=== PATIENT | male | born 1950 | race Caucasian/White ===

== ENCOUNTER → 2017-04-13 | Outpatient (CLI) | payer MEDICARE, BC ==
[~2017-04-13] MED LIST: ASPI-535; CLOP75TA19; EZET10TA3 PO; FENO145T25; INSU100C5 SC; IODIXANOL LOCM 100 ML BTL ONE; IODIXANOL LOCM 50 ML BTL ONE; LIRA0.6P; METF500T4 PO; PIOG45TA6 PO; SIMV-39; SITA1TAB7 PO; SOD CHLORIDE 0.9% 100 ML ONE
[2017-04-13 09:50] LABS: CALCIUM 9.4 mg/dl (8.4-10.2); CREATININE 1.15 mg/dl (0.61-1.24); POTASSIUM 4.4 mmol/L (3.5-5.1)
--- NOTE | 2017-04-13 13:05 | RADRPT ---
PROCEDURE: CT angiography of the abdomen and pelvis bilateral lower extremities with contrast. CLINICAL INDICATION: Peripheral artery disease TECHNIQUE: CT angiography of the abdomen, pelvis, and bilateral lower extremities was performed on a high resolution multidetector scanner with intravenous contrast. Multiplanar reconstructions, thr ee-dimensional reconstructions, as well as maximal intensity projection images are produced and revi ewed. One or more of the following dose reduction techniques were used: Automated exposure control; Adjustment of the mA and/or kV according to patient size; Use of iterative reconstruction technique. CTDI = 14, 53 mGy. DLP = 2027 mGy-cm. DICOM images are available. CONTRAST: 120 ml Visipaque 320 administered without adverse event. COMPARISON: None. FINDINGS: Abdominal Aorta: Mild calcified and moderate noncalcified plaques which has an ulcerated appearance . No focal stenosis. Celiac axis: Patent SMA: Minimal atherosclerotic changes without stenosis ALIE: Mild ostial stenosis Right Renal artery: Single, patent Left Renal artery: Single, patent Right Common Iliac: Minimal irregularities Right Internal Iliac: 50% stenosis prior to the bifurcation Right External Iliac: Minimal irregularities Left Common Iliac: Minimal irregularity Left Internal Iliac: Occluded to just prior to the bifurcation which is reconstituted via a iliolum bar collaterals Left External Iliac: Minimal irregularity RIGHT LOWER EXTREMITY RUN-OFF: Right CHANNEL SUPERVISOR: Patent Right SFA: Multifocal predominantly noncalcified plaques producing 25 - 50% stenosis within the mid and distal segments of the vessel Right Profunda Femoris: Patent Right Popliteal: 60% stenosis proximally with additional mild irregularities Right Anterior Tibial: Proximal stenoses are present ranging from 25 - 50%. Mid and distal segments of the vessel are patent. Right Tibioperoneal Trunk: Patent Right Peroneal: Patent Right Posterior Tibial: Patent Right Dorsalis Pedis: Patent Right Plantar Arch: Patent LEFT LOWER EXTREMITY RUN-OFF: Left CHANNEL SUPERVISOR: Minimal irregularities Left SFA: Minimal irregularities Left Profunda Femoris: Patent Left Popliteal: 30 - 40% stenosis at the joint line Left Anterior Tibial: Minimal irregularities proximally. Near occlusion in the midsegment of the ve ssel. Distal segment is patent. Left Tibioperoneal Trunk: Absent, trifurcation configuration Left Peroneal: Patent Left Posterior Tibial: Patent Left Dorsalis Pedis: Patent Left Plantar Arch: Patent ADDITIONAL FINDINGS: Low attenuation changes of the liver suggestive of hepatic steatosis. 1.4 cm apparent enhancing lesi on involving the inferomedial portion of the right kidney. Moderate constipation. Minimal fat contai flako bilateral inguinal hernias. IMPRESSION: Right Internal Iliac: 50% stenosis prior to the bifurcation Right SFA: Multifocal predominantly noncalcified plaques producing 25 - 50% stenosis within the mid and distal segments of the vessel Right Popliteal: 60% stenosis proximally with additional mild irregularities Right Anterior Tibial: Proximal stenoses are present ranging from 25 - 50%. Mid and distal segments of the vessel are patent. Left Internal Iliac: Occluded to just prior to the bifurcation which is reconstituted via a iliolum bar collaterals Left Popliteal: 30 - 40% stenosis at the joint line Left Anterior Tibial: Minimal irregularities proximally. Near occlusion in the midsegment of the ve ssel. Distal segment is patent. 1.4 cm apparent enhancing lesion involving the inferomedial portion of the right kidney concerning f or a small oncocytoma or renal cell carcinoma. CT renal mass protocol of the abdomen recommended for further evaluation. RPTAT: [facility] .Hiro Sharma MD, MD Date Time Electronically viewed and signed by .Hiro Sharma MD, on 04/13/2017 13:05 .B/
== END | disposition home or self-care (01) ==
LOC: LAB 08:45
PROVIDERS: ATTEND Internal Medicine Interventional Cardiology
DX: I73.9 Peripheral vascular disease, unspecified (principal)
CPT/HCPCS: 75635; 80048; Q9967

== ENCOUNTER 2017-06-08 06:45 | Day surgery (SDC) | END 2017-06-08 14:00 | disposition home or self-care (01) ==

== ENCOUNTER 2018-09-19 16:42 | Inpatient (IN) | payer MEDICARE, BC ==
[~2018-09-19] VITALS: Ht 167.6 cm; Wt 98.0 kg
[~2018-09-19 16:42] MED LIST changes: +ATOR-2 PO; +BROM5CAP12 PO; +CARV12.579 PO; +DOCU100T PO; -EZET10TA3 PO; +EZET10TA31 PO; +INSU100I31 SQ; -IODIXANOL LOCM 100 ML BTL ONE; -IODIXANOL LOCM 50 ML BTL ONE; +LISI-471 PO; +METF100010 PO; -METF500T4 PO; +OMEG10006 PO; -PIOG45TA6 PO; +PIOG45TA9 PO; -SIMV-39; +SIMV80TA18; +SITA100T11 PO; -SITA1TAB7 PO; -SOD CHLORIDE 0.9% 100 ML ONE; +TAMS0.4C2 PO; +VIT D2 PO
[2018-09-19] MEDS ORDERED: SITA100T11 PO (16:56)
[2018-09-19] MEDS ORDERED: DAPA5TAB PO (16:56)
[2018-09-19] MEDS ORDERED: ATOR40TA68 PO (16:57)
[2018-09-19] MEDS ORDERED: CLOP75TA19 PO (16:57)
[2018-09-19] MEDS ORDERED: BROM5CAP12 PO (16:57)
[2018-09-19] MEDS ORDERED: LISI-471 PO (16:58)
[2018-09-19] MEDS ORDERED: CARV12.579 PO (16:58)
[2018-09-19] MEDS ORDERED: ERGO500013 PO (16:58)
[2018-09-19] MEDS ORDERED: REPA2TAB8 PO (16:59)
[2018-09-19] MEDS ORDERED: FENO145T37 PO (17:00)
[2018-09-19] MEDS ORDERED: METF100010 PO (17:00)
[2018-09-19] MEDS ORDERED: ASPIRIN 81 MG TAB PO ONE (17:30)
[2018-09-19] MEDS ORDERED: INSU100I31 SQ (17:32)
[2018-09-19] MEDS ORDERED: EVOL140P SQ (17:33)
--- NOTE | 2018-09-19 17:39 | STROKE ---
Date/Time of Note Date/Time of Note DATE: 09/19/18 TIME: 17:38 Patient Information General Patient location: emergency Arrival Date Age 68 Gender male Weight 95.45 kg Vital Signs Vital Signs Vital Signs Date Temp Pulse Resp B/P (MAP) Pulse Ox O2 O2 Flow FiO2 Time Delivery Rate 09/19/18 98.2 67 18 183/90 99 16:43 (121) Patient History Current Medications Allergies: Coded Allergies: No Known Allergies (Verified Allergy, Mild, 09/19/18) History & Physical History of Present Illness 68 M PMH TIA, HTN LKW 0800 PST with dysarthria after a denture fitting. Patient does not have any symptoms other than mild dysarthria. NIH Stroke Scale NIH Stroke Scale [id number] Total Score: [id number] Date/Time Recorded DATE: 09/19/18 TIME: 17:05 Submitted By Horacio Reina t-PA Imaging Review Date/Time Imaging Reviewed DATE: 09/19/18 TIME: 17:38 t-PA Administration Recommendation: No Weight 95.45 kg Recommedation submitted by Horacio Reina Reason t-PA not Recommended Not in time window Recommendations Recommendation 68 M with isolated dysarthria after a denture fitting. Isolated dysarthria is an extremely rare presentation for stroke. Other etiologies more likely but stroke can be further ruled-out with MRI Brain. Not in tPA window and not evidence- based mechanical thrombectomy candidate. - F/u pending NCHCT and CTA Head/Neck reads - MRI Brain can further rule-out stroke as cause of isolated dysarthria - Frequent neuro checks and permissive SBP to 180 while MRI Brain pending - Further care per local Neurology team based on MRI Brain results HORACIO REINA MD September 19, 2018 17:39
[2018-09-19] MEDS ORDERED: ACETAMINOPHEN 325 MG TAB PO PRN ×2 (18:30→20:30)
[2018-09-19] MEDS ORDERED: ONDANSETRON 4 MG INJ IV PRN ×2 (18:30→20:30)
--- NOTE | 2018-09-19 19:30 | ERD ---
ER Documentation Chief Complaint Chief Complaint slurred speech x1hr LKWT 0800am HPI This is a 68-year-old gentleman history of hypertension hyperlipidemia and diabetes who presents to the emergency room with slurred speech. The initial report is that the patient's last known well time was around 8 AM this morning. He went for a dental evaluation for fitting of a tooth brace but did not have a specific procedure. When he was seen back at home he had garbled speech per the family member. Patient had no facial droop no other motor weakness. He denies any chest pain, shortness of breath, headache. Symptoms are persistent and 911 was called. Patient was taken directly to CAT scan based on a code stroke initiation from the field. ROS All systems reviewed and are negative except as per history of present illness. Medications Home Meds Reported Medications Evolocumab (Repatha Sureclick) 140 Mg/1 Ml Pen.injctr, 140 MG SQ Q14D LAST INJECT. 09/04/18 09/19/18 Insulin Degludec (Tresiba Flextouch U-100) 100 Unit/1 Ml Insuln.pen, 44 UNIT SQ QHS 09/19/18 Fenofibrate Nanocrystallized* (Fenofibrate*) 145 Mg Tablet, 145 MG PO DAILY, TAB 09/19/18 Metformin Hcl* (Metformin Hcl*) 1,000 Mg Tablet, 1000 MG PO WITH BREAKFAST DINNE, #60 TAB 09/19/18 Repaglinide* (Repaglinide*) 2 Mg Tablet, 2 MG PO AC MEALS, TAB 09/19/18 Lisinopril* (Lisinopril*) 20 Mg Tablet, 20 MG PO DAILY, #30 TAB 09/19/18 Carvedilol* (Carvedilol*) 12.5 Mg Tablet, 12.5 MG PO BID, #60 TAB 09/19/18 Ergocalciferol (Vitamin D2) (VITAMIN D2) 50,000 Unit Capsule, 63096 UNIT PO Q7D, CAP 09/19/18 Clopidogrel Bisulfate* (Clopidogrel Bisulfate*) 75 Mg Tablet, 75 MG PO DAILY, #30 TAB 09/19/18 Atorvastatin* (Atorvastatin*) 40 Mg Tablet, 40 MG PO QHS, #30 TAB 09/19/18 Bromocriptine Mesylate* (Parlodel*) 5 Mg Capsule, 5 MG PO DAILY, CAP 09/19/18 Dapagliflozin Propanediol (Farxiga) 5 Mg Tablet, 5 MG PO DAILY, #30 TAB 09/19/18 Sitagliptin* (Januvia*) 100 Mg Tablet, 100 MG PO DAILY, #30 TAB 09/19/18 Discontinued Reported Medications Tamsulosin Hcl* (Tamsulosin Hcl*) 0.4 Mg Cap.er.24h, 0.4 MG PO DAILY, CAP 06/08/17 Docusate Sodium* (Dok*) 100 Mg Tablet, 200 MG PO DAILY, #60 CAP 06/08/17 Carvedilol* (Carvedilol*) 12.5 Mg Tablet, 12.5 MG PO BID, #60 TAB 06/08/17 Myrtle-3 Fatty Acids (OMEGA-3) 1,000 Mg Capsule, 1000 MG PO BID, CAP 06/08/17 Lisinopril* (Lisinopril*) 20 Mg Tablet, 20 MG PO DAILY, #30 TAB 06/08/17 Bromocriptine Mesylate* (Parlodel*) 5 Mg Capsule, 5 MG PO DAILY, CAP 06/08/17 [Vit D2] No Conflict Check, 1.25 MG PO WEEKLY 06/08/17 Sitagliptin* (Januvia*) 100 Mg Tablet, 100 MG PO DAILY, #30 TAB 06/08/17 Metformin Hcl* (Metformin Hcl*) 1,000 Mg Tablet, 1000 MG PO WITH BREAKFAST DINNE, #30 TAB 06/08/17 Insulin Degludec (Tresiba Flextouch U-100) 100 Unit/1 Ml Insuln.pen, 45 UNIT SQ DAILY 06/08/17 Atorvastatin* (Atorvastatin*) 80 Mg Tablet, 80 MG PO QHS, #30 TAB 06/08/17 Liraglutide (Victoza 2-Rod) 0.6 Mg/0.1 Ml Pen.injctr, 0.6 02/28/11 Ezetimibe* (Zetia*) 10 Mg Tablet, 10 MG PO HS 02/28/11 Fenofibrate Nanocrystallized* (Tricor*) 145 Mg Tablet 05/26/10 Clopidogrel Bisulfate (Plavix) 75 Mg Tablet 05/26/10 Insulin Glargine,Hum.rec.anlog (Lantus) 100 U/Ml Cartridge, 30 U SC HS, 0 Refills 03/12/10 Simvastatin* (Simvastatin*) 80 Mg Tablet 03/12/10 Pioglitazone Hcl* (Actos*) 45 Mg Tablet, 45 MG PO HS, 0 Refills 03/12/10 Aspirin Ec (Aspir 81) 81 Mg Tablet. 03/12/10 Allergies Allergies: Coded Allergies: No Known Allergies (Verified Allergy, Mild, 09/19/18) PMhx/Soc History of Surgery: Yes (knee sx, hernia repair, appy, tonsillectomy, heart stent 3 x, ) Anesthesia Reaction: No Hx Neurological Disorder: No Hx Respiratory Disorders: No Hx Cardiac Disorders: No Hx Psychiatric Problems: No Hx Miscellaneous Medical Probl: No Hx Alcohol Use: Yes Hx Substance Use: No Hx Tobacco Use: Yes (2 pack a day) Smoking Status: Current every day smoker FmHx Family History: diabetes Physical Exam Vitals Vital Signs Date Temp Pulse Resp B/P (MAP) Pulse Ox O2 O2 Flow FiO2 Time Delivery Rate 09/19/18 98.2 65 18 138/55 99 Room Air 17:15 (82) 09/19/18 98.2 67 18 183/90 99 16:43 (121) Physical Exam General: Well developed, well nourished, no acute distress Head: Normocephalic, atraumatic. Eyes: Pupils equally reactive, EOM intact ENT: Moist mucous membranes Neck: Supple, no lymphadenopathy Respiratory: Lungs clear bilaterally, no distress Cardiovascular: RRR, no murmurs, rubs, or gallops Abdominal: Soft, non-tender, non-distended, no peritoneal signs : Deferred MSK: No edema, no unilateral swelling, 5/5 strength Neurologic: Alert and oriented, moving all extremities, slightly slurred speech, no focal weakness, no cerebellar signs, no pronator drift, normal rapid alternating movements. NIHSS of 1 Skin: No rash Psych: Normal mood Result Diagram: 09/19/18 1715 09/19/18 1715 Results 24 hrs Laboratory Tests Test 09/19/18 17:15 White Blood Count 10.5 10^3/ul Red Blood Count 4.81 10^6/ul Hemoglobin 11.9 g/dl Hematocrit 39.0 % Mean Corpuscular Volume 81.1 fl Mean Corpuscular Hemoglobin 24.7 pg Mean Corpuscular Hemoglobin Concent 30.5 g/dl Red Cell Distribution Width 14.7 % Platelet Count 247 10^3/UL Mean Platelet Volume 10.8 fl Immature Granulocytes % 0.700 % Neutrophils % 68.3 % Lymphocytes % 22.2 % Monocytes % 6.6 % Eosinophils % 1.8 % Basophils % 0.4 % Nucleated Red Blood Cells % 0.0 /100WBC Immature Granulocytes # 0.070 10^3/ul Neutrophils # 7.2 10^3/ul Lymphocytes # 2.3 10^3/ul Monocytes # 0.7 10^3/ul Eosinophils # 0.2 10^3/ul Basophils # 0.0 10^3/ul Nucleated Red Blood Cells # 0.0 10^3/ul Prothrombin Time 12.3 Sec Prothrombin Time Ratio 1.0 INR International Normalized Ratio 0.90 Activated Partial Thromboplast Time 26.4 Sec Sodium Level 140 mmol/L Potassium Level 4.1 mmol/L Chloride Level 107 mmol/L Carbon Dioxide Level 26 mmol/L Anion Gap 7 Blood Urea Nitrogen 20 mg/dl Creatinine 1.16 mg/dl Est Glomerular Filtrat Rate mL/min > 60 mL/min Glucose Level 111 mg/dl Hemoglobin A1c 6.4 % Calcium Level 9.1 mg/dl Creatine Kinase 127 IU/L Creatine Kinase Index 2.0 Creatinine Kinase MB (Mass) 2.59 ng/ml Troponin I < 0.012 ng/ml Triglycerides Level 231 mg/dl Cholesterol Level 92 mg/dl LDL Cholesterol, Calculated 24 mg/dl HDL Cholesterol 22 mg/dl Cholesterol/HDL Ratio 4.1 RATIO Ethyl Alcohol Level < 10.0 mg/dl Current Medications Medications Dose Sig/Ken Start Time Status Last (Trade) Ordered Route PRN Stop Time Admin Dose Reason Admin Aspirin 162 mg ONCE ONCE 09/19/18 DC 09/19/18 (Aspirin) PO 17:30 17:22 09/19/18 17:31 Ondansetron 4 mg ER BRIDGE 09/19/18 HCl (Zofran PRN IV 18:30 Inj) NAUSEA/VOMITI 09/20/18 18:29 NG 650 mg ER BRIDGE 09/19/18 Acetaminophen PRN PO 18:30 (Tylenol .MILD PAIN 09/20/18 18:29 Tab) 1-3 OR TEMP Procedures/MDM EKG, MONITORS, & DIAGNOSTIC IMAGING: EKG: I reviewed and interpreted a 12-lead EKG. Rhythm: Normal sinus rhythm Ectopy: None Arrhythmia: None Intervals: No abnormalities ST segments: No elevations or depressions T waves: No contiguous inversions Interpretation: No acute cardiac ischemia Chest x-ray: I reviewed and interpreted a 1 view of the chest Mediastinum: No enlargement Cardiac silhouette: No cardiomegaly Airspace: Clear lung [place] bilaterally without evidence of pneumothorax Bones: No evidence of fracture Interpretation: No acute cardiopulmonary process CT Brain: IMPRESSION: No evidence of acute intracranial pathology. There is generalized volume loss with microvascular changes with lacunar infarcts involving the right caudate, left thalamus and right amrilou. Findings were discussed with Dr. Driscoll of the emergency room department at 04:55 p.m. RPTAT: [facility] CTA Head and Neck: IMPRESSION: CT angiogram of the brain demonstrates there is occlusion of the left anterior temporal lobe branch just distal to the its origin. The rest of the left MCA branches are normal in appearance. Intracranial atherosclerosis with calcification of the cavernous ICA segments resulting in mild stenosis measuring up to percent. Irregularity of the left posterior cerebral artery with elongated stenosis of the left P2 segment. CT angiogram of the neck demonstrates intimal plaque with scattered calcifications of the common carotid arteries extending to the bifurcations without significant stenosis. There is a focal narrowing of the right vertebral artery secondary to surrounding osteophyte measuring under 50%. The findings were discussed Dr. Driscoll of the emergency room department at 05:15 p.m. RPTAT: [facility] INTERPRETATION: * No acute process MEDICAL DECISION MAKING: The patient presents with a acute change in neurologic status including dysart hria of unclear etiology but concern for possible stroke. His last known well time is 8 AM this morning. The patient presents outside of 4-1/2 hours from last known well time. He is not a candidate for TPA. This seems to be unlikely secondary to large vessel occlusion though code stroke was initiated for CT CTA based on her protocols. Patient was taken directly to CAT scan from EMS arrival. Aspirin provided after negative work-up ER COURSE: Stroke assessment and timing: Last known well time: 8 AM Arrival to ED: 1643 Stroke code activation: [address] scan: 1644 Initial neurology discussion: 1647 NIHSS: 1 TPA decision-making: Patient is not a TPA candidate given presentation greater than 4-1/2 hours from last known well time Interventional decision-making: Patient is not an interventional candidate given no large vessel occlusion. Based on the CTA read I did have a conversation with the on-call attending at [facility]. We discussed the case. Based on the location she does not recommend transfer to [facility] for higher level of care. There is no indication for interventional management based on this finding. Stroke neurologist on-call: Dr. Vincent Critical Care Note: Total time: 35 minutes Indication/Organ System Threat: Acute neurologic deficit and stroke code acti vation that requires emergent evaluation and assessment to prevent neurologic compromising collapse. I spent the above amount of critical care time with the patient, not including billable procedures. This included chart review, consultations, repeat bedside evaluations, and titration of appropriate medications to prevent cardiopulmonary or respiratory collapse. I kept the patient and/or family informed of laboratory and diagnostic imaging results throughout the emergency room course. DISPOSITION PLAN: Telemetry admission Accepting care team and consultations: I discussed the current laboratory data, diagnostic imaging and emergency care provided. Admitting team: Dr. Monroy Admitting team indication: Insurance directed Departure Diagnosis: Primary Impression: Acute ischemic stroke Condition: Stable JOANNE DRISCOLL MD September 19, 2018 19:30
[2018-09-19] MEDS: ATORVASTATIN 80 MG TAB PO SCH (20:15)
[2018-09-19] MEDS ORDERED: DOCUSATE SODIUM 100 MG CAP PO PRN (20:30)
[2018-09-19] MEDS ORDERED: hydrALAzine 20 MG INJ IV PRN (20:30)
[2018-09-19] MEDS ORDERED: NACL 0.9% 3 ML SYG IV SCH (20:30)
[2018-09-19] MEDS ORDERED: BISACODYL (EC) 5 MG TAB PO PRN (20:30)
[2018-09-19] MEDS ORDERED: SOD CHLORIDE 0.9% 100 ML ONE (20:36)
[2018-09-19] MEDS ORDERED: IOHEXOL 100 ML ONE (20:36)
--- NOTE | 2018-09-19 21:58 | HP ---
Date/Time of Note Date/Time of Note DATE: 09/19/18 TIME: 21:57 Assessment/Plan VTE Prophylaxis SCD applied (from Nsg): Yes Pharmacological prophylaxis: NA/contraindicated Pharm contraindication: low risk/ambulating Lines/Catheters IV Catheter Type (from Nrs): Saline Lock Assessment/Plan Hospital Course 1. Acute cva: Patient presented with dysarthria which is improving, he does not have any other focal neurological deficits. He was not a candidate for any TPA or mechanical intervention. We will check hemoglobin A1c, lipid panel, TSH. Initiate the patient on aspirin 81 mg daily and high-dose atorvastatin daily. Neurochecks every 4 hours, permissive hypertension for the first , PRN hydralazine for blood pressure greater than 220/120. MRI of the brain and MRA of the brain and neck in the a.m. carotid Dopplers, echo with bubble study. Neurology consultation . PT/OT/speech eval. Encourage smoking cessation. CT angiogram of the brain demonstrates there is occlusion of the left anterior temporal lobe branch just distal to the its origin. The rest of the left MCA branches are normal in appearance.Intracranial atherosclerosis with calcification of the cavernous ICA segments resulting in mild stenosis measuring up to percent.Irregularity of the left posterior cerebral artery with elongated stenosis of the left P2 segment.CT angiogram of the neck demonstrates intimal plaque with scattered calcifications of the common carotid arteries extending to the bifurcations without significant stenosis. There is a focal narrowing of the right vertebral artery secondary to surrounding osteophyte measuring under 50%. #2 coronary disease: Resume patient's home medications except for blood pressure meds given permissive hypertension for the first 24 hours.Patient has a history of DC and cardiac stents. #3 diabetes mellitus: Check hemoglobin A 1C, resume patient's medications except oral medications, insulin sliding scale #4 hypertension: We will hold patient's home oral medications, PRN hydralazine for blood pressure greater than 220/120 for the first 24 hours #5. DVT and GI prophylaxis: SCDs, no GI prophylaxis indicated Further treatment strategy will be implemented as per clinical course Result Diagram: 09/19/18 1715 09/19/18 1715 Results 24hrs Laboratory Tests Test 09/19/18 17:15 White Blood Count 10.5 Red Blood Count 4.81 Hemoglobin 11.9 L Hematocrit 39.0 L Mean Corpuscular Volume 81.1 L Mean Corpuscular Hemoglobin 24.7 L Mean Corpuscular Hemoglobin Concent 30.5 L Red Cell Distribution Width 14.7 H Platelet Count 247 Mean Platelet Volume 10.8 H Immature Granulocytes % 0.700 H Neutrophils % 68.3 Lymphocytes % 22.2 Monocytes % 6.6 Eosinophils % 1.8 Basophils % 0.4 Nucleated Red Blood Cells % 0.0 Immature Granulocytes # 0.070 H Neutrophils # 7.2 Lymphocytes # 2.3 Monocytes # 0.7 Eosinophils # 0.2 Basophils # 0.0 Nucleated Red Blood Cells # 0.0 Prothrombin Time 12.3 Prothrombin Time Ratio 1.0 INR International Normalized Ratio 0.90 Activated Partial Thromboplast Time 26.4 Sodium Level 140 Potassium Level 4.1 Chloride Level 107 Carbon Dioxide Level 26 Anion Gap 7 Blood Urea Nitrogen 20 Creatinine 1.16 Est Glomerular Filtrat Rate mL/min > 60 Glucose Level 111 Hemoglobin A1c 6.4 H Calcium Level 9.1 Creatine Kinase 127 Creatine Kinase Index 2.0 Creatinine Kinase MB (Mass) 2.59 H Troponin I < 0.012 Triglycerides Level 231 H Cholesterol Level 92 L LDL Cholesterol, Calculated 24 HDL Cholesterol 22 L Cholesterol/HDL Ratio 4.1 Ethyl Alcohol Level < 10.0 H HPI/ROS Admit Date/Time Admit Date/Time Hx of Present Illness cc: slurred speech This is a 68-year-old gentleman history of hypertension hyperlipidemia and diabetes who presented to the emergency room with slurred speech. The initial report is that the patient's last known well time was around 8 AM this morning. He went for a dental evaluation for fitting of a tooth brace but did not have a specific procedure. When he was seen back at home he had garbled speech by his . Patient had no facial droop no other motor weakness. Initally the patient did not think anything was wrong. However, later when speaking to his grandchildren he noticing his words were slurred. Since coming in to the ER his speech has improved, though it is not back at baseline as per the and the daughter who are at the bedside. He denies any chest pain, shortness of martha ath, headache. EMS was called and when patient arrived to the emergency department he was taken stat to the CAT scan as a code stroke was called in the field. Given that the patient's presentation was greater than 4-1/2 hours he was not considered a TPA candidate. The ED physician did have a call with the on-call attending at [facility] and given the patient's location of occlusion on the CT they did not recommend transfer for higher level of care at that time as there was no indication for intervention. At the current time the patient's and daughter do state that his speech has been improving slowly. Patient does report that he is a 2 pack/day smoker. He does have a significant cardiova scular history. Allergies: NKDA Medications: See JUN ROS Const: As per HPI Eyes : No pain discharge or redness or change in visual acuity ENT: No pain, sore throat, congestion, congestion, dysphagia or discharge Respiratory: No shortness of breath, cough, sputum, wheezing, or pleuritic pain Cardiovascular: No chest pain, palpitation, PND, or edema GI : no change in appetite, abdominal pain, nausea, vomiting, diarrhea, constipation, or change in the color his stool Genitourinary: No dysuria, hematuria, flank pain , discharge or CVA tenderness Musculoskeletal: No joint pain, back pain, neck pain, restricted range of motion in neck or joints Skin: No rash, bruising or hives Neuro: As per HPI Endocrine: No polyuria, polydipsia, temperature intolerance Psych: No hallucination, depression, anxiety or suicidal ideation PMH/Family/Social Past Medical History Coronary disease, diabetes mellitus, hyperlipidemia, hypertension, history of DC Medications Current Medications IV Flush (NS 3 ml) 3 ml PER PROTOCOL IV ; Start 09/19/18 at 20:30 Ondansetron HCl (Zofran Inj) 4 mg Q6H PRN IV NAUSEA/VOMITING; Start 09/19/18 at 20:30 Acetaminophen (Tylenol Tab) 650 mg Q6H PRN PO .PAIN 1-3 OR TEMP; Start 09/19/18 at 20:30 Docusate Sodium (Colace) 100 mg Q12H PRN PO .CONSTIPATION; Start 09/19/18 at 20:30 Bisacodyl (Dulcolax) 5 mg DAILY PRN PO .CONSTIPATION; Start 09/19/18 at 20:30 Hydralazine HCl (Apresoline) 10 mg Q4H PRN IV ELEVATED BLOOD PRESSURE; Start 09/19/18 at 20:30 Atorvastatin Calcium (Lipitor) 80 mg HS PO Last administered on 09/19/18at 20:15; Admin Dose 80 MG; Start 09/19/18 at 21:00 Aspirin (Aspirin) 81 mg DAILY PO ; Start 09/20/18 at 09:00 Coded Allergies: No Known Allergies (Verified Allergy, Mild, 09/19/18) Past Surgical History Cardiac stents x3, appendectomy, hernia repair, tonsillectomy Family History Significant Family History: no pertinent family hx Social History Alcohol Use: none Smoking Status: Current every day smoker (2 pack/day) Drug Use: none Exam/Review of Systems Vital Signs Vitals Vital Signs Date Temp Pulse Resp B/P (MAP) Pulse Ox O2 O2 Flow FiO2 Time Delivery Rate 09/19/18 60 12 141/59 98 Room Air 20:40 (86) 09/19/18 98.2 17:15 Exam Exam General: Patient is a pleasant male currently lying in bed in no acute distress, his and daughter with him at the bedside HEENT: Atraumatic, normocephalic. The pupils are equal, round and reactive. Extraocular motor are intact Neck: Supple with full range of motion. No rigidity or meningismus Chest: Nontender Lungs: Clear to auscultation bilaterally no crackles rales or wheezing Heart: Normal S1-S2, Regular rhythm and rate. No murmur, S3, or S4 Abdomen: Soft , nontender, nondistended , bowel sounds are present. No guarding no rebound tenderness , No masses or organomegaly. No costovertebral temporal angle mass Extremities: Normal to inspection, no edema no cyanosis Neurologic: Normal mental status, speech overall appears normal with occasional moments of slurring, however the family states that this is significantly better than earlier in the day, cranial nerves II through XII are intact, motor and sensory are intact, no focal weakness Additional Comments EKG: Normal sinus rhythm at approximately 67 bpm, no ST or T wave abnormalities concerning for acute ischemia PROCEDURE: CT Brain without contrast. CLINICAL INDICATION: Acute slurred speech TECHNIQUE: A CT of the brain was performed on a [employer] 64-slice CT scanner utilizing axial imaging from the skull base through the vertex without IV contrast. Multiplanar reformatted images were made. Images were reviewed on a PACS workstation. The CTDIvol is 37.8 mGy and the DLP is 634.23 mGycm. One or more the following dose reduction techniques were utilized: Automated exposure control, adjustment of mA/ or kV according to patient's size, or use of iterative reconstruction technique. DICOM images are available for review. COMPARISON: None FINDINGS: There is no intracranial hemorrhage, mass effect, or midline shift. the ventricles and sulci are mildly prominent is a with mild generalized volume loss. There is an old infarct of the right caudate and left thalamus. Patchy hypoattenuation is seen in the periventricular white matter. There is good chamberlain- white matter differentiation throughout the cerebral hemispheres. Images of the posterior fossa demonstrate likely an old right pontine lacunar infarct. The cerebellum is unremarkable. No extra-axial fluid collection is seen. The visualized paranasal sinuses and osseous structures are grossly unremarkable. IMPRESSION: No evidence of acute intracranial pathology. There is generalized volume loss with microvascular changes with lacunar infarcts involving the right caudate, left thalamus and right marilou. Findings were discussed with Dr. Driscoll of the emergency room department at 04:55 p.m. RPTAT: [facility] Sakina Wong Physician Date Time Electronically viewed and signed by Physician Sav on 09/19/2018 17:01 RL/ CC: JOANNE DRISCOLL MD [id number] PROCEDURE: XR chest. CLINICAL INDICATION: Stroke TECHNIQUE: Portable AP view of the chest was obtained. COMPARISON: None. FINDINGS: Heart size is normal. Aortic arch is mildly atherosclerotic. There is no pneumothorax or pleural effusion. There is no focal pulmonic consolidation. IMPRESSION: 1. No acute pulmonary abnormality. 2. Aortic atherosclerosis. RPTAT: DD Physician Mani Date Time Electronically viewed and signed by Physician Mani on 09/19/2018 17:26 RM/ CC: JOANNE DRISCOLL MD [id number] PROCEDURE: CTA head and neck CLINICAL INDICATION: Acute slurred speech TECHNIQUE: The study was performed utilizing a GE 64-slice CT scanner. Direct thin section helical 0.625 mm axial sections were obtained through the head and neck after the uneventful administration of 88 cc of Omnipaque 350 nonionic intravenous contrast material. Coronal and sagittal as well as maximal intensity projection reformations were obtained. 3-D images were made. The images were reviewed on a PACS workstation. The total CTDIvol is 16.49 mGy and the DLP is an 649.56 mGy-cm. One or more the following dose reduction techniques were utilized: Automated exposure control, adjustment of the mA/ or kV according to patient's size, or use of iterative reconstruction technique. DICOM images are available for review. COMPARISON: No prior studies are available for comparison. FINDINGS: CTA NECK: Images of the aortic arch demonstrate calcific and non calcific plaque with intimal thickening of the common carotid arteries however no significant stenosis seen. At the carotid bifurcations there is also calcific and non calcific plaque without resultant stenosis. The proximal mid and distal internal carotid arteries are normal in appearance. Images the vertebral a rteries demonstrate there is narrowing of the right proximal third vertebral artery secondary to an osteophyte measuring under 50%. The left vertebral artery is normal in appearance. There is no evidence of a hemodynamically significant stenosis or dissection. CTA BRAIN: Images of the internal carotid arteries demonstrate scattered calcifications of the cavernous ICA segments bilaterally slightly greater on the right resulting in bilateral narrowing, measuring under 50%. The ICA bifurcations are normal in appearance. The anterior cerebral arteries are unremarkable. Images of the left MCA vessels demonstrate there is occlusion of a left anterior temporal lobe M2 branch. The rest of the M2 branches are normal in appearance. The right MCA branches are normal. Incidentally noted is a right [employer]. The anterior left posterior communicating arteries are visualized are normal. The intracranial vertebral arteries and basilar artery normal in appearance. Images the left posterior cerebral artery demonstrate there is some irregularity along the left P2 segment with a elongated stenosis which is mild. The right posterior cerebral arteries otherwise unremarkable. The origins of the superior cerebellar arteries and right anterior internal cerebral arteries are visualized are unremarkable. Bilateral PICA origins are visualized and normal. No aneurysm or vascular malformation is identified. IMPRESSION: CT angiogram of the brain demonstrates there is occlusion of the left anterior temporal lobe branch just distal to the its origin. The rest of the left MCA branches are normal in appearance. Intracranial atherosclerosis with calcification of the cavernous ICA segments re sulting in mild stenosis measuring up to percent. Irregularity of the left posterior cerebral artery with elongated stenosis of the left P2 segment. CT angiogram of the neck demonstrates intimal plaque with scattered calcifications of the common carotid arteries extending to the bifurcations wit hout significant stenosis. There is a focal narrowing of the right vertebral artery secondary to s urrounding osteophyte measuring under 50%. The findings were discussed Dr. Driscoll of the emergency room department at 05:15 p.m. RPTAT: [facility] Physician Sav Date Time Electronically viewed and signed by Physician Sav on 09/19/2018 17:26 RL/ CC: JOANNE DRISCOLL MD [id number] PROCEDURE: CTA head and neck CLINICAL INDICATION: Acute slurred speech TECHNIQUE: The study was performed utilizing a GE 64-slice CT scanner. Direct thin section helical 0.625 mm axial sections were obtained through the head and neck after the uneventful administration of 88 cc of Omnipaque 350 nonionic intravenous contrast material. Coronal and sagittal as well as maximal intensity projection reformations were obtained. 3-D images were made. The imag es were reviewed on a PACS workstation. The total CTDIvol is 16.49 mGy and the DLP is an 649.56 mGy-cm. One or more the following dose reduction techniques were utilized: Automated exposure control, adjustment of the mA/ or kV according to patient's size, or use of iterative reconstruction technique. DICOM images are available for review. COMPARISON: No prior studies are available for comparison. FINDINGS: CTA NECK: Images of the aortic arch demonstrate calcific and non calcific p laque with intimal thickening of the common carotid arteries however no significant stenosis seen. At the carotid bifurcations there is also calcific and non calcific plaque without resultant stenosis. The proximal mid and distal internal carotid arteries are normal in appearance. Images the vertebral arteries demonstrate there is narrowing of the right proximal third vertebral artery secondary to an osteophyte measuring under 50%. The left vertebral artery is normal in appearance. There is no evidence of a hemodynamically significant stenosis or dissection. CTA BRAIN: Images of the internal carotid arteries demonstrate scattered calcifications of the cavernous ICA segments bilaterally slightly greater on the right resulting in bilateral narrowing, measuring under 50%. The ICA bifurcat ions are normal in appearance. The anterior cerebral arteries are unremarkable. Images of the left MCA vessels demonstrate there is occlusion of a left anterior temporal lobe M2 branch. The rest of the M2 branches are normal in appearance. The right MCA branches are normal. Incidentally noted is a right [employer]. The anterior left posterior communicating arteries are visualized are normal. The intracranial vertebral arteries and basilar artery normal in appearance. Images the left posterior cerebral artery demonstrate there is some irregularity along the left P2 segment with a elongated stenosis which is mild. The right posterior cerebral arteries otherwise unremarkable. The origins of the superior cerebellar arteries and right anterior internal cerebral arteries are visualized are unremarkable. Bilateral PICA origins are visualized and normal. No aneurysm or vascular malformation is identified. IMPRESSION: CT angiogram of the brain demonstrates there is occlusion of the left anterior temporal lobe branch just distal to the its origin. The rest of the left MCA branches are normal in appearance. Intracranial atherosclerosis with calcification of the cavernous ICA segments resulting in mild stenosis measuring up to percent. Irregularity of the left posterior cerebral artery with elongated stenosis of the left P2 segment. CT angiogram of the neck demonstrates intimal plaque with scattered calcifications of the common carotid arteries extending to the bifurcations without significant stenosis. There is a focal narrowing of the right vertebral artery secondary to surrounding osteophyte measuring under 50%. The findings were discussed Dr. Driscoll of the emergency room department at 05:15 p.m. RPTAT: [facility] Physician Sav Date Time Electronically viewed and signed by Physician Sav on 09/19/2018 17:26 RL/ CC: JOANNE DRISCOLL MD [id number] MIGUEL ROGERS September 19, 2018 21:58
[2018-09-20] VITALS (11 sets, daily range): BP systolic 129–166; BP diastolic 60–81; PULSE 56–68; RESP 16–20; Ht 167.6 cm; Wt 98.0 kg
[2018-09-20] MEDS ORDERED: SOD CHLORIDE 0.9% 1,000 ML IV SCH (04:30)
[2018-09-20] MEDS ORDERED: DEXTROSE 50% 50 ML SYRINGE IV PRN ×2 (04:30)
[2018-09-20] MEDS ORDERED: GLUCOSE GEL 15 GRAM TUBE BUCCAL PRN (04:30)
[2018-09-20] MEDS ORDERED: GLUCOSE GEL 15 GRAM TUBE PO PRN ×2 (04:30)
[2018-09-20] MEDS ORDERED: GLUCAGON 1 MG INJ IM PRN (04:30)
[2018-09-20] MEDS: INSULIN ASPART [NOVOLOG] 3 ML PEN SC SCH ×4 (04:48→18:03)
[2018-09-20] MEDS: ASPIRIN 81 MG TAB PO SCH (08:09)
--- NOTE | 2018-09-20 12:20 | CONSI ---
Assessment/Plan Assessment/Plan Assessment/Plan (Recall) 68 yo M with multiple cerebrovascular risk factors who presents for evaluation of dysarthria... for which neurology is consulted. The clinical picture is most ominously concerning for TIA/minor stroke. CTH is without acute intracranial pathology, though notable for old infarcts. CTA H/N is most notable for anterior L M2 occlusion and intracranial athero. Echo is unrevealing P: Await MRI/ MRA H/N for further characterization Cont ASA/Plavix for stroke prevention per ops; LDL is at goal Permissive HTN up to 220/110 for 24h Add ESR, RPR Cont other medical management per margarita ST as necessary Will follow clinically, to recommend neurologic studies, as necessary Consultation Date/Type/Reason Admit Date/Time Type of Consult Neurology Reason for Consultation dysarthria Requesting Provider: MIGUEL ROGERS Date/Time of Note DATE: 09/20/18 TIME: 12:20 Hx of Present Illness 68 yo M with hx of HTN, HLD, DM who presented to the ED with c/o slurred speech. History was obtained from pt and chart review. The pt confirms the story below. He states that his speech has returned to normal, though has c/o numbness around his mouth, lower part of his face. Denies headache, weakness, lethargy, confusion, dizziness, vision changes. It is additionally elsewhere noted: Hx of Present Illness cc: slurred speech This is a 68-year-old gentleman history of hypertension hyperlipidemia and diabetes who presented to the emergency room with slurred speech. The initial report is that the patient's last known well time was around 8 AM this morning. He went for a dental evaluation for fitting of a tooth brace but did not have a specific procedure. When he was seen back at home he had garbled speech by his . Patient had no facial droop no other motor weakness. Initally the patient did not think anything was wrong. However, later when speaking to his grandchildren he noticing his words were slurred. Since coming in to the ER his speech has improved, though it is not back at baseline as per the and the daughter who are at the bedside. He denies any chest pain, shortness of breath, headache. EMS was called and when patient arrived to the emergency department he was taken stat to the CAT scan as a code stroke was called in the field. Given that the patient's presentation was greater than 4-1/2 hours he wa s not considered a TPA candidate. The ED physician did have a call with the on- call attending at [facility] and given the patient's location of occlusion on the CT they did not recommend transfer for higher level of care at that time as there was no indication for intervention. At the current time the patient's and daughter do state that his speech has been improving slowly. Patient does report that he is a 2 pack/day smoker. He does have a significant cardiovascular history. negative unless noted otherwise in HPI Objective Exam Vitals Vital Signs Date Temp Pulse Resp B/P (MAP) Pulse Ox O2 O2 Flow FiO2 Time Delivery Rate 09/20/18 98.3 60 16 129/81 96 11:11 (97) 09/20/18 Room Air 03:51 Exam PE: Gen Appearance: No Apparent Distress HEENT: Normocephalic Cardiovascular: Regular rate Lungs: Clear bilaterally Abdomen: Soft Extremities: Dry NE: The patient was alert and oriented.. Language was normal. Fund of knowledge was normal. Pupils were equal and reactive to light. There was no afferent pupillary defect. Visual mayfield were normal. Funduscopic examination was limited. Extra-ocular movements were full. Ptosis was absent. There was no nystagmus. Facial sensation was normal. Face was symmetric with normal strength. Hearing was intact. Palate movements were normal. Neck strength was normal. There was normal tongue bulk and speed of movement. Tone was normal. Muscle bulk was normal. I did not see fasciculations. Arms and legs were strong. Vibration sensation was normal. Temperature and pinprick sensation was normal. Rapid alternating movements were normal. There was no dysmetria. There was no intention tremor. Gait was deferred due to bedrest. Arm and leg reflexes were 2+ and symmetric. Diaz's sign was absent. Plantar responses were flexor. Results Result Diagram: 09/20/18 [id number] Results 24hrs Laboratory Tests Test 09/19/18 17:15 09/20/18 04:47 09/20/18 05:23 09/20/18 08:08 White Blood Count 10.5 10.5 Red Blood Count 4.81 5.26 Hemoglobin 11.9 L 12.9 L Hematocrit 39.0 L 42.4 Mean Corpuscular 81.1 L 80.6 L Volume Mean Corpuscular 24.7 L 24.5 L Hemoglobin Mean Corpuscular 30.5 L 30.4 L Hemoglobin Concent Red Cell 14.7 H 15.1 H Distribution Width Platelet Count 247 246 Mean Platelet Volume 10.8 H 11.1 H Immature 0.700 H 0.900 H Granulocytes % Neutrophils % 68.3 64.6 Lymphocytes % 22.2 24.5 Monocytes % 6.6 7.1 Eosinophils % 1.8 2.6 Basophils % 0.4 0.3 Nucleated Red Blood 0.0 0.0 Cells % Immature 0.070 H 0.090 H Granulocytes # Neutrophils # 7.2 6.8 Lymphocytes # 2.3 2.6 Monocytes # 0.7 0.8 Eosinophils # 0.2 0.3 Basophils # 0.0 0.0 Nucleated Red Blood 0.0 0.0 Cells # Prothrombin Time 12.3 Prothrombin Time 1.0 Ratio INR International 0.90 Normalized Ratio Activated 26.4 Partial Thromboplast Time Sodium Level 140 142 Potassium Level 4.1 4.0 Chloride Level 107 109 Carbon Dioxide Level 26 25 Anion Gap 7 8 Blood Urea Nitrogen 20 19 Creatinine 1.16 1.18 Est Glomerular > 60 > 60 Filtrat Rate mL/min Glucose Level 111 130 Hemoglobin A1c 6.4 H 6.4 H Calcium Level 9.1 9.5 Creatine Kinase 127 Creatine Kinase 2.0 Index Creatinine Kinase MB 2.59 H (Mass) Troponin I < 0.012 Triglycerides Level 231 H 251 H Cholesterol Level 92 L 108 LDL Cholesterol, 24 36 Calculated HDL Cholesterol 22 L 22 L Cholesterol/HDL 4.1 4.9 Ratio Ethyl Alcohol Level < 10.0 H Bedside Glucose 127 151 Magnesium Level 1.6 L Total Bilirubin 0.2 Direct Bilirubin 0.00 Indirect Bilirubin 0.2 Aspartate Amino 31 Transf (AST/SGOT) Alanine 22 Aminotransferase (AL T/SGPT) Alkaline Phosphatase 50 Total Protein 6.7 Albumin 3.9 Globulin 2.80 Albumin/Globulin 1.39 Ratio Thyroid Stimulating 1.370 Hormone (TSH) Test 09/20/18 11:53 Bedside Glucose 150 Past Medical History reviewed Home Meds Reported Medications Evolocumab (Repatha Sureclick) 140 Mg/1 Ml Pen.injctr, 140 MG SQ Q14D LAST INJECT. 09/04/18 09/19/18 Insulin Degludec (Tresiba Flextouch U-100) 100 Unit/1 Ml Insuln.pen, 44 UNIT SQ QHS 09/19/18 Fenofibrate Nanocrystallized* (Fenofibrate*) 145 Mg Tablet, 145 MG PO DAILY, TAB 09/19/18 Metformin Hcl* (Metformin Hcl*) 1,000 Mg Tablet, 1000 MG PO WITH BREAKFAST DINNE, #60 TAB 09/19/18 Repaglinide* (Repaglinide*) 2 Mg Tablet, 2 MG PO AC MEALS, TAB 09/19/18 Lisinopril* (Lisinopril*) 20 Mg Tablet, 20 MG PO DAILY, #30 TAB 09/19/18 Carvedilol* (Carvedilol*) 12.5 Mg Tablet, 12.5 MG PO BID, #60 TAB 09/19/18 Ergocalciferol (Vitamin D2) (VITAMIN D2) 50,000 Unit Capsule, 64322 UNIT PO Q7D, CAP 09/19/18 Clopidogrel Bisulfate* (Clopidogrel Bisulfate*) 75 Mg Tablet, 75 MG PO DAILY, #30 TAB 09/19/18 Atorvastatin* (Atorvastatin*) 40 Mg Tablet, 40 MG PO QHS, #30 TAB 09/19/18 Bromocriptine Mesylate* (Parlodel*) 5 Mg Capsule, 5 MG PO DAILY, CAP 09/19/18 Dapagliflozin Propanediol (Farxiga) 5 Mg Tablet, 5 MG PO DAILY, #30 TAB 09/19/18 Sitagliptin* (Januvia*) 100 Mg Tablet, 100 MG PO DAILY, #30 TAB 09/19/18 Discontinued Reported Medications Tamsulosin Hcl* (Tamsulosin Hcl*) 0.4 Mg Cap.er.24h, 0.4 MG PO DAILY, CAP 06/08/17 Docusate Sodium* (Dok*) 100 Mg Tablet, 200 MG PO DAILY, #60 CAP 06/08/17 Carvedilol* (Carvedilol*) 12.5 Mg Tablet, 12.5 MG PO BID, #60 TAB 06/08/17 [place]-3 Fatty Acids (OMEGA-3) 1,000 Mg Capsule, 1000 MG PO BID, CAP 06/08/17 Lisinopril* (Lisinopril*) 20 Mg Tablet, 20 MG PO DAILY, #30 TAB 06/08/17 Bromocriptine Mesylate* (Parlodel*) 5 Mg Capsule, 5 MG PO DAILY, CAP 06/08/17 [Vit D2] No Conflict Check, 1.25 MG PO WEEKLY 06/08/17 Sitagliptin* (Januvia*) 100 Mg Tablet, 100 MG PO DAILY, #30 TAB 06/08/17 Metformin Hcl* (Metformin Hcl*) 1,000 Mg Tablet, 1000 MG PO WITH BREAKFAST DINNE, #30 TAB 06/08/17 Insulin Degludec (Tresiba Flextouch U-100) 100 Unit/1 Ml Insuln.pen, 45 UNIT SQ DAILY 06/08/17 Atorvastatin* (Atorvastatin*) 80 Mg Tablet, 80 MG PO QHS, #30 TAB 06/08/17 Liraglutide (Victoza 2-Rod) 0.6 Mg/0.1 Ml Pen.injctr, 0.6 02/28/11 Ezetimibe* (Zetia*) 10 Mg Tablet, 10 MG PO HS 02/28/11 Fenofibrate Nanocrystallized* (Tricor*) 145 Mg Tablet 05/26/10 Clopidogrel Bisulfate (Plavix) 75 Mg Tablet 05/26/10 Insulin Glargine,Hum.rec.anlog (Lantus) 100 U/Ml Cartridge, 30 U SC HS, 0 Refills 03/12/10 Simvastatin* (Simvastatin*) 80 Mg Tablet 03/12/10 Pioglitazone Hcl* (Actos*) 45 Mg Tablet, 45 MG PO HS, 0 Refills 03/12/10 Aspirin Ec (Aspir 81) 81 Mg Tablet. 03/12/10 Medications Current Medications IV Flush (NS 3 ml) 3 ml PER PROTOCOL IV ; Start 09/19/18 at 20:30 Ondansetron HCl (Zofran Inj) 4 mg Q6H PRN IV NAUSEA/VOMITING; Start 09/19/18 at 20:30 Acetaminophen (Tylenol Tab) 650 mg Q6H PRN PO .PAIN 1-3 OR TEMP; Start 09/19/18 at 20:30 Docusate Sodium (Colace) 100 mg Q12H PRN PO .CONSTIPATION; Start 09/19/18 at 20:30 Bisacodyl (Dulcolax) 5 mg DAILY PRN PO .CONSTIPATION; Start 09/19/18 at 20:30 Hydralazine HCl (Apresoline) 10 mg Q4H PRN IV ELEVATED BLOOD PRESSURE; Start 09/19/18 at 20:30 Atorvastatin Calcium (Lipitor) 80 mg HS PO Last administered on 09/19/18at 20:15; Admin Dose 80 MG; Start 09/19/18 at 21:00 Aspirin (Aspirin) 81 mg DAILY PO Last administered on 09/20/18at 08:09; Admin Dose 81 MG; Start 09/20/18 at 09:00 Miscellaneous Information 1 ea NOTE XX ; Start 09/20/18 at 04:30 Glucose (Glutose) 15 gm Q15M PRN PO DECREASED GLUCOSE; Start 09/20/18 at 04:30 Glucose (Glutose) 22.5 gm Q15M PRN PO DECREASED GLUCOSE; Start 09/20/18 at 04:30 Dextrose (D50w Syringe) 25 ml Q15M PRN IV DECREASED GLUCOSE; Start 09/20/18 at 04:30 Dextrose (D50w Syringe) 50 ml Q15M PRN IV DECREASED GLUCOSE; Start 09/20/18 at 04:30 Glucagon (Glucagen) 1 mg Q15M PRN IM DECREASED GLUCOSE; Start 09/20/18 at 04:30 Glucose (Glutose) 15 gm Q15M PRN BUCCAL DECREASED GLUCOSE; Start 09/20/18 at 04:30 Insulin Aspart (Novolog Insulin Pen) NOVOLOG *MILD* ALGORI... AC MEALS AND BEDTIME SC Last administered on 09/20/18at 11:56; Admin Dose 1 UNIT; Start 09/20/18 at 11:30 Bromocriptine Mesylate (Parlodel) 5 mg DAILY PO ; Start 09/21/18 at 09:00; Status UNV Carvedilol (Coreg) 12.5 mg BID PO ; Start 09/20/18 at 21:00; Status UNV Clopidogrel Bisulfate (plaVIX) 75 mg DAILY PO ; Start 09/21/18 at 09:00; Status UNV Fenofibrate (Tricor) 145 mg DAILY PO ; Start 09/21/18 at 09:00; Status UNV Lisinopril (Zestril) 20 mg DAILY PO ; Start 09/21/18 at 09:00; Status UNV Miscellaneous Information 100 mg DAILY PO ; Start 09/21/18 at 09:00; Status UNV Allergies: Coded Allergies: No Known Allergies (Verified Allergy, Mild, 09/19/18) Past Surgical History reviewed Social History reviewed Alcohol Use: none Smoking Status: Current every day smoker (2 pack/day) Drug Use: none MANUEL VILLALOBOS NP September 20, 2018 12:20
--- NOTE | 2018-09-20 13:01 | PN ---
Date/Time of Note Date/Time of Note DATE: 09/20/18 TIME: 13:01 Assessment/Plan VTE Prophylaxis Risk score (from Ns)>0 risk: 3 SCD applied [place] [facility] [place] SCD contraindicated: other Pharmacological prophylaxis: LMWH Lines/Catheters IV Catheter Type (from [facility]): Peripheral IV Assessment/Plan Hospital Course SUBJECTIVE: Patient with no motor deficit. He continued to have some speech dy sarthria and per patient, it is improved from before. OBJECTIVE: Vital signs-see below PHYSICAL EXAM: Constitutional: obese,not in acute distress. HEENT: Head atraumatic and normocephalic. Eyes: Extraocular muscles intact. Anicteric sclerae. Pupils equal bilaterally, reactive to light. NECK: Supple without lymph node. CHEST: Clear and good breath sounds equally. No wheezing. No rhonchi. HEART: S1, S2. Regular rate and rhythm. ABDOMEN: Soft/non tender with no rebound tenderness. Bowel sounds were present. EXTREMITIES: No cyanosis, clubbing or edema. NEUROLOGIC: +Slight dysrthria. Alert and oriented x3. No focal deficit. No sensory deficit. PSYCHOSOCIAL: No signs of depression. INTEGUMENTARY: No open wounds. ASSESSMENT AND PLAN:68 yo M w/CAD/PCI/stentsx3, htn,dm2,dlp,vit D deficiency, tobacco dependency here w/sudden onset of dysarthria f/b some dental evaluaion.. Dysarthria -r/o Stroke -pending MRI,Echo studies f/u neuro recs -ASA/Statin -ST/PT Intracranial artery stenosis -Await for neurology recs for further guidance on this -Resume asa/Plavix CAD/PCI/Stents -resume bb/statin/asa/ACEi DMII -Basal/bolus insulin -Resume Tradjenta HTN -Resume antihypertensives -Keep normotensive at this point Dyslipidemia -resume statin Obesity -Life style modification advised. DVT prophylaxis: Lovenox Dispo:F/u MRI, Follow neuro recs. ST/PT f/u Pt was seen in collaboration w/ Result Diagram: 09/20/18 0523 09/20/18 0523 Results 24hrs Laboratory Tests Test 09/19/18 17:15 09/20/18 04:47 09/20/18 05:23 09/20/18 08:08 White Blood Count 10.5 10.5 Red Blood Count 4.81 5.26 Hemoglobin 11.9 L 12.9 L Hematocrit 39.0 L 42.4 Mean Corpuscular 81.1 L 80.6 L Volume Mean Corpuscular 24.7 L 24.5 L Hemoglobin Mean Corpuscular 30.5 L 30.4 L Hemoglobin Concent Red Cell 14.7 H 15.1 H Distribution Width Platelet Count 247 246 Mean Platelet Volume 10.8 H 11.1 H Immature 0.700 H 0.900 H Granulocytes % Neutrophils % 68.3 64.6 Lymphocytes % 22.2 24.5 Monocytes % 6.6 7.1 Eosinophils % 1.8 2.6 Basophils % 0.4 0.3 Nucleated Red Blood 0.0 0.0 Cells % Immature 0.070 H 0.090 H Granulocytes # Neutrophils # 7.2 6.8 Lymphocytes # 2.3 2.6 Monocytes # 0.7 0.8 Eosinophils # 0.2 0.3 Basophils # 0.0 0.0 Nucleated Red Blood 0.0 0.0 Cells # Prothrombin Time 12.3 Prothrombin Time 1.0 Ratio INR International 0.90 Normalized Ratio Activated 26.4 Partial Thromboplast Time Sodium Level 140 142 Potassium Level 4.1 4.0 Chloride Level 107 109 Carbon Dioxide Level 26 25 Anion Gap 7 8 Blood Urea Nitrogen 20 19 Creatinine 1.16 1.18 Est Glomerular > 60 > 60 Filtrat Rate mL/min Glucose Level 111 130 Hemoglobin A1c 6.4 H 6.4 H Calcium Level 9.1 9.5 Creatine Kinase 127 Creatine Kinase 2.0 Index Creatinine Kinase MB 2.59 H (Mass) Troponin I < 0.012 Triglycerides Level 231 H 251 H Cholesterol Level 92 L 108 LDL Cholesterol, 24 36 Calculated HDL Cholesterol 22 L 22 L Cholesterol/HDL 4.1 4.9 Ratio Ethyl Alcohol Level < 10.0 H Bedside Glucose 127 151 Magnesium Level 1.6 L Total Bilirubin 0.2 Direct Bilirubin 0.00 Indirect Bilirubin 0.2 Aspartate Amino 31 Transf (AST/SGOT) Alanine 22 Aminotransferase (AL T/SGPT) Alkaline Phosphatase 50 Total Protein 6.7 Albumin 3.9 Globulin 2.80 Albumin/Globulin 1.39 Ratio Thyroid Stimulating 1.370 Hormone (TSH) Test 09/20/18 11:53 Bedside Glucose 150 Exam/Review of Systems Exam Vitals Vital Signs Date Temp Pulse Resp B/P (MAP) Pulse Ox O2 O2 Flow FiO2 Time Delivery Rate 09/20/18 98.3 60 16 129/81 96 11:11 (97) 09/20/18 Room Air 03:51 Results Results 24hrs Laboratory Tests Test 09/19/18 17:15 09/20/18 04:47 09/20/18 05:23 09/20/18 08:08 White Blood Count 10.5 10.5 Red Blood Count 4.81 5.26 Hemoglobin 11.9 L 12.9 L Hematocrit 39.0 L 42.4 Mean Corpuscular 81.1 L 80.6 L Volume Mean Corpuscular 24.7 L 24.5 L Hemoglobin Mean Corpuscular 30.5 L 30.4 L Hemoglobin Concent Red Cell 14.7 H 15.1 H Distribution Width Platelet Count 247 246 Mean Platelet Volume 10.8 H 11.1 H Immature 0.700 H 0.900 H Granulocytes % Neutrophils % 68.3 64.6 Lymphocytes % 22.2 24.5 Monocytes % 6.6 7.1 Eosinophils % 1.8 2.6 Basophils % 0.4 0.3 Nucleated Red Blood 0.0 0.0 Cells % Immature 0.070 H 0.090 H Granulocytes # Neutrophils # 7.2 6.8 Lymphocytes # 2.3 2.6 Monocytes # 0.7 0.8 Eosinophils # 0.2 0.3 Basophils # 0.0 0.0 Nucleated Red Blood 0.0 0.0 Cells # Prothrombin Time 12.3 Prothrombin Time 1.0 Ratio INR International 0.90 Normalized Ratio Activated 26.4 Partial Thromboplast Time Sodium Level 140 142 Potassium Level 4.1 4.0 Chloride Level 107 109 Carbon Dioxide Level 26 25 Anion Gap 7 8 Blood Urea Nitrogen 20 19 Creatinine 1.16 1.18 Est Glomerular > 60 > 60 Filtrat Rate mL/min Glucose Level 111 130 Hemoglobin A1c 6.4 H 6.4 H Calcium Level 9.1 9.5 Creatine Kinase 127 Creatine Kinase 2.0 Index Creatinine Kinase MB 2.59 H (Mass) Troponin I < 0.012 Triglycerides Level 231 H 251 H Cholesterol Level 92 L 108 LDL Cholesterol, 24 36 Calculated HDL Cholesterol 22 L 22 L Cholesterol/HDL 4.1 4.9 Ratio Ethyl Alcohol Level < 10.0 H Bedside Glucose 127 151 Magnesium Level 1.6 L Total Bilirubin 0.2 Direct Bilirubin 0.00 Indirect Bilirubin 0.2 Aspartate Amino 31 Transf (AST/SGOT) Alanine 22 Aminotransferase (AL T/SGPT) Alkaline Phosphatase 50 Total Protein 6.7 Albumin 3.9 Globulin 2.80 Albumin/Globulin 1.39 Ratio Thyroid Stimulating 1.370 Hormone (TSH) Test 09/20/18 11:53 Bedside Glucose 150 Medications Medication Current Medications IV Flush (NS 3 ml) 3 ml PER PROTOCOL IV ; Start 09/19/18 at 20:30 Ondansetron HCl (Zofran Inj) 4 mg Q6H PRN IV NAUSEA/VOMITING; Start 09/19/18 at 20:30 Acetaminophen (Tylenol Tab) 650 mg Q6H PRN PO .PAIN 1-3 OR TEMP; Start 09/19/18 at 20:30 Docusate Sodium (Colace) 100 mg Q12H PRN PO .CONSTIPATION; Start 09/19/18 at 20:30 Bisacodyl (Dulcolax) 5 mg DAILY PRN PO .CONSTIPATION; Start 09/19/18 at 20:30 Hydralazine HCl (Apresoline) 10 mg Q4H PRN IV ELEVATED BLOOD PRESSURE; Start 09/19/18 at 20:30 Atorvastatin Calcium (Lipitor) 80 mg HS PO Last administered on 09/19/18at 20:15; Admin Dose 80 MG; Start 09/19/18 at 21:00 Aspirin (Aspirin) 81 mg DAILY PO Last administered on 09/20/18at 08:09; Admin Dose 81 MG; Start 09/20/18 at 09:00 Miscellaneous Information 1 ea NOTE XX ; Start 09/20/18 at 04:30 Glucose (Glutose) 15 gm Q15M PRN PO DECREASED GLUCOSE; Start 09/20/18 at 04:30 Glucose (Glutose) 22.5 gm Q15M PRN PO DECREASED GLUCOSE; Start 09/20/18 at 04:30 Dextrose (D50w Syringe) 25 ml Q15M PRN IV DECREASED GLUCOSE; Start 09/20/18 at 04:30 Dextrose (D50w Syringe) 50 ml Q15M PRN IV DECREASED GLUCOSE; Start 09/20/18 at 04:30 Glucagon (Glucagen) 1 mg Q15M PRN IM DECREASED GLUCOSE; Start 09/20/18 at 04:30 Glucose (Glutose) 15 gm Q15M PRN BUCCAL DECREASED GLUCOSE; Start 09/20/18 at 04:30 Insulin Aspart (Novolog Insulin Pen) NOVOLOG *MILD* ALGORI... AC MEALS AND BEDTIME SC Last administered on 09/20/18at 11:56; Admin Dose 1 UNIT; Start 09/20/18 at 11:30 Bromocriptine Mesylate (Parlodel) 5 mg DAILY PO ; Start 09/20/18 at 14:00 Carvedilol (Coreg) 12.5 mg BID PO ; Start 09/20/18 at 13:00 Clopidogrel Bisulfate (plaVIX) 75 mg DAILY PO ; Start 09/20/18 at 13:00 Fenofibrate (Tricor) 145 mg DAILY PO ; Start 09/20/18 at 13:00 Lisinopril (Zestril) 20 mg DAILY PO ; Start 09/20/18 at 13:00 Insulin Glargine (Lantus) 29 units DAILY@2000 SC ; Start 09/20/18 at 20:00 Linagliptin (Tradjenta) 5 mg DAILY PO ; Start 09/20/18 at 13:00 KARL LOJA NP September 20, 2018 13:01
--- NOTE | 2018-09-20 14:11 | RADRPT ---
Echocardiogram Report Patient Name: CHICO LUCIANOPatient ID: [id number] : 1950 (68y 1m)Study Date: 09/20/2018 8:48:45 AM Gender: Sabacession #: [id number] Tech: Charla [facility] Location: [facility] [place]- Ref.Physician: MIGUEL ROGERS Height(Cm): BSA: Weight(Kg): Quality: AdequateOrder Physician: MIGUEL ROGERS Account #: Procedures: Echocardiographic Report: Transthoracic echocardiogram with complete 2D, M-Mode, and doppler examination. Indications: Cerebrovascular Accident w/ bubble study. Measurements: 2D/M Mode Doppler Measurement Value Normal Range Measurement Value Normal Range LVIDd 2D 4.3 [ 4.2 - 5.8 ] cm AV Peak Krzysztof 1.8 [ 100.0 - 170.0 ] cm/sec LVIDs 2D 2.5 [ 2.5 - 4.0 ] cm AV Peak PG 13.0 [ 2.0 - 9.0 ] mmHg LVPWd 2D 1.2 [ 0.6 - 1.0 ] cm LVOT Peak Krzysztof 1.1 [ 70.0 - 110.0 ] cm/sec IVSd 2D 1.6 [ 0.6 - 1.0 ] cm LVOT Peak PG 5.0 [ 2.0 - 6.0 ] mmHg AoR Diam 2D 2.8 [ 2.6 - 3.4 ] cm MV E Peak Krzysztof 0.9 [ 60.0 - 130.0 ] cm/sec EDV 2D 82.6 [ 62.0 - 150.0 ] ml MV A Peak Krzysztof 0.8 [ 100.0 - 120.0 ] cm/sec ESV 2D 22.3 [ 21.0 - 61.0 ] ml MV E/A 1.0 [ 0.8 - 1.5 ] ratio EF 2D 73.0 [ 52.0 - 72.0 ] percent MV Decel Time 197 [ 104 - 258 ] msec LA Dimen 2D 3.9 [ 3.0 - 4.0 ] cm Lat E` Krzysztof 0.1 [ 10.0 - 15.0 ] cm/sec Lateral E/E` 9.0 [ 1.0 - 2.0 ] ratio MV E/A 1.0 [ 0.8 - 1.5 ] ratio TR Peak Krzysztof 1.8 [ 100.0 - 280.0 ] cm/sec TR Peak PG 13.0 mmHg RVSP 16.0 [ 10.0 - 36.0 ] mmHg Findings: Left Ventricle: Normal left ventricular systolic function. Normal left ventricular cavity size. Sigmoid septum. Ejection fraction is visually estimated at 65 %. Tissue Doppler/Mitral Doppler indices are consistent with impaired relaxation (Stage I diastolic dysfunction). Right Ventricle: Normal right ventricular size. Normal right ventricular systolic function. Left Atrium: The left atrium is normal in size. Right Atrium: The right atrium is normal in size. Atrial Septum: Bubble study was performed with and with out valsalva indicating no evidence of intra atrial shunt. Mitral Valve: Mild mitral leaflet calcification. Mild mitral annular calcification. Trace mitral regurgitation. Aortic Valve: No hemodynamically significant aortic stenosis by doppler. Aortic cusps appear mildly calcified. Tricuspid Valve: Normal appearance of the tricuspid valve. The estimated Peak RVSP is 16 mmHg. There is trace tricuspid regurgitation. Pericardium: Normal pericardium with no significant pericardial effusion. Aorta: Normal aortic root. IVC: Normal size and normal respiratory collapse consistent with normal right atrial pressure. Conclusions: Normal left ventricular systolic function. Normal left ventricular cavity size. Sigmoid septum. Ejection fraction is visually estimated at 65 %. Tissue Doppler/Mitral Doppler indices are consistent with impaired relaxation (Stage I diastolic dysfunction). Normal right ventricular size. Normal right ventricular systolic function. The left atrium is normal in size. The right atrium is normal in size. No significant valvular stenosis or regurgitation seen. Normal pericardium with no significant pericardial effusion. Bubble study was performed with and with out valsalva indicating no evidence of intra atrial shunt. Electronically Signed By: Edward La 2018-09-20 14:10:48 PDT
[2018-09-20] MEDS: BROMOCRIPTINE 2.5 MG TAB PO SCH (14:19)
[2018-09-20] MEDS: LISINOPRIL 20 MG TAB PO SCH (14:19)
[2018-09-20] MEDS: LINAGLIPTIN 5 MG TABLET PO SCH (14:20)
[2018-09-20] MEDS: CLOPIDOGREL 75 MG TAB PO SCH (14:20)
[2018-09-20] MEDS: FENOFIBRATE 145 MG TAB PO SCH (14:20)
[2018-09-20] MEDS: INSULIN GLARGINE [LANTus] (100 UNITS/ML) SYG SC SCH ×2 (20:00→21:49)
[2018-09-20] MEDS ORDERED: MAGNESIUM SULFATE 2 GM/50 ML 50 ML IVPB ONE (20:30)
[2018-09-20] MEDS: Insulin NOVOLOG SS MILD Algorithm (SS with meals and bedtime) SC SCH (21:00)
[2018-09-20] MEDS: ATORVASTATIN 80 MG TAB PO SCH (21:22)
[2018-09-21] VITALS (11 sets, daily range): BP systolic 110–140; BP diastolic 56–64; PULSE 52–61; RESP 18–20
[2018-09-21] MEDS: Insulin NOVOLOG SS MILD Algorithm (SS with meals and bedtime) SC SCH ×4 (07:00→20:26)
[2018-09-21] MEDS: ASPIRIN 81 MG TAB PO SCH (08:51)
[2018-09-21] MEDS: LISINOPRIL 20 MG TAB PO SCH (08:52)
[2018-09-21] MEDS: FENOFIBRATE 145 MG TAB PO SCH (08:52)
[2018-09-21] MEDS: LINAGLIPTIN 5 MG TABLET PO SCH (08:53)
[2018-09-21] MEDS: CLOPIDOGREL 75 MG TAB PO SCH (08:53)
[2018-09-21] MEDS: BROMOCRIPTINE 2.5 MG TAB PO SCH (08:53)
[2018-09-21] MEDS ORDERED: NON-FORMULARY/PATIENT OWN MED (Sitagliptin* (Januvia*) 100 MG) PO SCH (09:00)
--- NOTE | 2018-09-21 10:13 | PN ---
Date/Time of Note Date/Time of Note DATE: 09/21/18 TIME: 10:11 Assessment/Plan VTE Prophylaxis Risk score (from Ns)>0 risk: 3 SCD applied (from [facility]): No SCD contraindicated: low risk/ambulating Pharmacological prophylaxis: heparin Pharm contraindication: low risk/ambulating Lines/Catheters IV Catheter Type (from [facility]): Saline Lock Assessment/Plan Problems: (1) Acute ischemic stroke Status: Acute Comment: He has not had any further progression of the stroke. Please note this was in the left cerebral region. He is now on full dose statin along with fabric acid derivative, aspirin and Plavix. Blood pressure is now being controlled carefully as blood sugar control is being calorie controlled carefully. Possible discharge in morning if agreed to by neurology (2) Essential hypertension Status: Chronic Comment: Good control at this time (3) Diabetes mellitus type 2 in obese Status: Chronic Comment: Good control in the inpatient environment (4) Grade I diastolic dysfunction Status: Chronic Comment: Good blood pressure control at this time (5) Obesity (BMI 30.0-34.9) Status: Chronic Comment: Calorie restriction diet (6) Cigarette smoker Status: Chronic Comment: Re-counseled on the absolute need to discontinue tobacco products Result Diagram: 09/20/18 0523 09/21/18 0514 Results 24hrs Laboratory Tests Test 09/20/18 11:53 09/20/18 16:28 09/20/18 21:27 09/21/18 05:14 Bedside Glucose 150 150 141 Erythrocyte 16 Sedimentation Rate Sodium Level 142 Potassium Level 4.5 Chloride Level 107 Carbon Dioxide Level 26 Anion Gap 9 Blood Urea Nitrogen 24 H Creatinine 1.38 H Est Glomerular 52 L Filtrat Rate mL/min Glucose Level 120 Calcium Level 9.4 Test 09/21/18 07:48 Bedside Glucose 143 Subjective 24 Hr Interval Summary Free Text/Dictation Patient reports he is feeling better today than yesterday. He has been ambulatory here at the hospital Constitutional: no complaints Respiratory: no complaints Cardiovascular: no complaints Gastrointestinal: no complaints Genitourinary: no complaints Exam/Review of Systems Exam Vitals Vital Signs Date Temp Pulse Resp B/P (MAP) Pulse Ox O2 O2 Flow FiO2 Time Delivery Rate 09/21/18 56 08:18 09/21/18 97.8 20 133/63 95 Room Air 07:11 (86) Intake and Output 09/20/18 09/20/18 09/21/18 1515:00 23:00 07:00 IntakeIntake Total 10 ml 850 ml 550 ml OutputOutput Total 300 ml BalanceBalance -290 ml 850 ml 550 ml Constitutional: alert, oriented Neck: supple, non-tender Respiratory: clear to auscultation, normal air movement Cardiovascular: regular rate and rhythm, nl pulses Results Results 24hrs Laboratory Tests Test 09/20/18 11:53 09/20/18 16:28 09/20/18 21:27 09/21/18 05:14 Bedside Glucose 150 150 141 Erythrocyte 16 Sedimentation Rate Sodium Level 142 Potassium Level 4.5 Chloride Level 107 Carbon Dioxide Level 26 Anion Gap 9 Blood Urea Nitrogen 24 H Creatinine 1.38 H Est Glomerular 52 L Filtrat Rate mL/min Glucose Level 120 Calcium Level 9.4 Test 09/21/18 07:48 Bedside Glucose 143 Medications Medication Current Medications IV Flush (NS 3 ml) 3 ml PER PROTOCOL IV ; Start 09/19/18 at 20:30 Ondansetron HCl (Zofran Inj) 4 mg Q6H PRN IV NAUSEA/VOMITING; Start 09/19/18 at 20:30 Acetaminophen (Tylenol Tab) 650 mg Q6H PRN PO .PAIN 1-3 OR TEMP; Start 09/19/18 at 20:30 Docusate Sodium (Colace) 100 mg Q12H PRN PO .CONSTIPATION; Start 09/19/18 at 20:30 Bisacodyl (Dulcolax) 5 mg DAILY PRN PO .CONSTIPATION; Start 09/19/18 at 20:30 Hydralazine HCl (Apresoline) 10 mg Q4H PRN IV ELEVATED BLOOD PRESSURE; Start 09/19/18 at 20:30 Atorvastatin Calcium (Lipitor) 80 mg HS PO Last administered on 09/20/18at 21:22; Admin Dose 80 MG; Start 09/19/18 at 21:00 Aspirin (Aspirin) 81 mg DAILY PO Last administered on 09/21/18at 08:51; Admin Dose 81 MG; Start 09/20/18 at 09:00 Miscellaneous Information 1 ea NOTE XX ; Start 09/20/18 at 04:30 Glucose (Glutose) 15 gm Q15M PRN PO DECREASED GLUCOSE; Start 09/20/18 at 04:30 Glucose (Glutose) 22.5 gm Q15M PRN PO DECREASED GLUCOSE; Start 09/20/18 at 04:30 Dextrose (D50w Syringe) 25 ml Q15M PRN IV DECREASED GLUCOSE; Start 09/20/18 at 04:30 Dextrose (D50w Syringe) 50 ml Q15M PRN IV DECREASED GLUCOSE; Start 09/20/18 at 04:30 Glucagon (Glucagen) 1 mg Q15M PRN IM DECREASED GLUCOSE; Start 09/20/18 at 04:30 Glucose (Glutose) 15 gm Q15M PRN BUCCAL DECREASED GLUCOSE; Start 09/20/18 at 04:30 Bromocriptine Mesylate (Parlodel) 5 mg DAILY PO Last administered on 09/21/18 08:53; Admin Dose 2.5 MG; Start 09/20/18 at 14:00 Carvedilol (Coreg) 12.5 mg BID PO Last administered on 09/21/18 08:54; Admin Dose 12.5 MG; Start 09/20/18 at 13:00 Clopidogrel Bisulfate (plaVIX) 75 mg DAILY PO Last administered on 09/21/18 08:53; Admin Dose 75 MG; Start 09/20/18 at 13:00 Fenofibrate (Tricor) 145 mg DAILY PO Last administered on 09/21/18 08:52; Admin Dose 145 MG; Start 09/20/18 at 13:00 Lisinopril (Zestril) 20 mg DAILY PO Last administered on 09/21/18 08:52; Admin Dose 20 MG; Start 09/20/18 at 13:00 Insulin Glargine (Lantus) 29 units DAILY@2000 SC Last administered on 09/20/18at 21:49; Admin Dose 29 UNITS; Start 09/20/18 at 20:00 Linagliptin (Tradjenta) 5 mg DAILY PO Last administered on 09/21/18 08:53; Admin Dose 5 MG; Start 09/20/18 at 13:00 Insulin Aspart (Novolog Insulin Pen) (Adult SC Insulin - Mild Algorithm)... AC MEALS AND BEDTIME SC ; Start 09/20/18 at 21:00 ALEENA JIMENEZ MD Sep 21, 2018 10:13
[2018-09-21] MEDS: ATORVASTATIN 80 MG TAB PO SCH (20:18)
[2018-09-21] MEDS: INSULIN GLARGINE [LANTus] (100 UNITS/ML) SYG SC SCH (20:26)
[2018-09-22] VITALS (7 sets, daily range): BP systolic 148–163; BP diastolic 67–79; PULSE 53–61; RESP 16–20
[2018-09-22] MEDS: Insulin NOVOLOG SS MILD Algorithm (SS with meals and bedtime) SC SCH ×2 (07:31→12:08)
[2018-09-22] MEDS: LISINOPRIL 20 MG TAB PO SCH (08:28)
[2018-09-22] MEDS: FENOFIBRATE 145 MG TAB PO SCH (08:29)
[2018-09-22] MEDS: CLOPIDOGREL 75 MG TAB PO SCH (08:30)
[2018-09-22] MEDS: BROMOCRIPTINE 2.5 MG TAB PO SCH (08:30)
[2018-09-22] MEDS: LINAGLIPTIN 5 MG TABLET PO SCH (08:30)
[2018-09-22] MEDS: ASPIRIN 81 MG TAB PO SCH (08:30)
--- NOTE | 2018-09-22 11:31 | DS ---
Date/Time of Note Date/Time of Note DATE: 09/22/18 TIME: 11:26 Discharge Summary Admission/Discharge Info Admit Date/Time September 19, 2018 at 18:24 Discharge Date/Time September 22, 2018 Discharge Diagnosis Acute cerebrovascular accident; hypertension; benign prostatic hypertrophy; hyperlipidemia; diabetes mellitus type 2; grade 1 diastolic dysfunction; obesity with a BMI of 34.9 Patient Condition: Good Consults Neurology Procedures Echocardiogram Conclusions: Normal left ventricular systolic function. Normal left ventricular cavity size. Sigmoid septum. Ejection fraction is visually estimated at 65 %. Tissue Doppler/Mitral Doppler indices are consistent with impaired relaxation (Stage I diastolic dysfunction). Normal right ventricular size. Normal right ventricular systolic function. The left atrium is normal in size. The right atrium is normal in size. No significant valvular stenosis or regurgitation seen. Normal pericardium with no significant pericardial effusion. Bubble study was performed with and with out valsalva indicating no evidence of intra atrial shunt. Cerebral CT angiogram IMPRESSION: CT angiogram of the brain demonstrates there is occlusion of the left anterior temporal lobe branch just distal to the its origin. The rest of the left MCA branches are normal in appearance. Intracranial atherosclerosis with calcification of the cavernous ICA segments resulting in mild stenosis measuring up to percent. Irregularity of the left posterior cerebral artery with elongated stenosis of the left P2 segment. CT angiogram of the neck demonstrates intimal plaque with scattered calcifications of the common carotid arteries extending to the bifurcations without significant stenosis. There is a focal narrowing of the right vertebral artery secondary to surrounding osteophyte measuring under 50%. Neck CT angiogram; MRI scan brain; MRA of brain Hx of Present Illness HPI This is a 68-year-old gentleman history of hypertension hyperlipidemia and diabetes who presents to the emergency room with slurred speech. The initial report is that the patient's last known well time was around 8 AM this morning. He went for a dental evaluation for fitting of a tooth brace but did not have a specific procedure. When he was seen back at home he had garbled speech per the family member. Patient had no facial droop no other motor weakness. He denies any chest pain, shortness of breath, headache. Symptoms are persistent and 911 was called. Patient was taken directly to CAT scan based on a code stroke initiation from the field. Hx of Present Illness cc: slurred speech This is a 68-year-old gentleman history of hypertension hyperlipidemia and diabetes who presented to the emergency room with slurred speech. The initial report is that the patient's last known well time was around 8 AM this morning. He went for a dental evaluation for fitting of a tooth brace but did not have a specific procedure. When he was seen back at home he had garbled speech by his . Patient had no facial droop no other motor weakness. Initally the patient did not think anything was wrong. However, later when speaking to his grandchildren he noticing his words were slurred. Since coming in to the ER his speech has improved, though it is not back at baseline as per the and the daughter who are at the bedside. He denies any chest pain, shortness of breath, headache. EMS was called and when patient arrived to the emergency department he was taken stat to the CAT scan as a code stroke was called in the field. Given that the patient's presentation was greater than 4-1/2 hours he was not considered a TPA candidate. The ED physician did have a call with the on-call attending at [facility] and given the patient's location of occlusion on the CT they did not recommend transfer for higher level of care at that time as there was no indication for intervention. At the current time the patient's and daughter do state that his speech has been improving slowly. Patient does report that he is a 2 pack/day smoker. He does have a significant cardiovascular history. Hx of Present Illness cc: slurred speech This is a 68-year-old gentleman history of hypertension hyperlipidemia and diabetes who presented to the emergency room with slurred speech. The initial report is that the patient's last known well time was around 8 AM this morning. He went for a dental evaluation for fitting of a tooth brace but did not have a specific procedure. When he was seen back at home he had garbled speech by his . Patient had no facial droop no other motor weakness. Initally the patient did not think anything was wrong. However, later when speaking to his gra ndchildren he noticing his words were slurred. Since coming in to the ER his speech has improved, though it is not back at baseline as per the and the daughter who are at the bedside. He denies any chest pain, shortness of breath, headache. EMS was called and when patient arrived to the emergency department he was taken stat to the CAT scan as a code stroke was called in the field. Given that the patient's presentation was greater than 4-1/2 hours he was not considered a TPA candidate. The ED physician did have a call with the on-call attending at [facility] and given the patient's location of occlusion on the CT they did not recommend transfer for higher level of care at that time as there was no indication for intervention. At the current time the patient's and daughter do state that his speech has been improving slowly. Patient does report that he is a 2 pack/day smoker. He does have a significant cardiovascular history. negative unless noted otherwise in HPI Hospital Course Being 68-year-old gentleman admitted with symptoms of acute CVA. He stabilized and did well has had no further symptoms. He has been cleared by physical therapy occupational therapy and speech therapy. He is now stable and ready for discharge home. 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 Home Meds Reported Medications Evolocumab (Repatha Sureclick) 140 Mg/1 Ml Pen.injctr, 140 MG SQ Q14D LAST INJECT. 09/04/18 09/19/18 Insulin Degludec (Tresiba Flextouch U-100) 100 Unit/1 Ml Insuln.pen, 44 UNIT SQ QHS 09/19/18 Fenofibrate Nanocrystallized* (Fenofibrate*) 145 Mg Tablet, 145 MG PO DAILY, TAB 09/19/18 Metformin Hcl* (Metformin Hcl*) 1,000 Mg Tablet, 1000 MG PO WITH BREAKFAST DINNE, #60 TAB 09/19/18 Repaglinide* (Repaglinide*) 2 Mg Tablet, 2 MG PO AC MEALS, TAB 09/19/18 Lisinopril* (Lisinopril*) 20 Mg Tablet, 20 MG PO DAILY, #30 TAB 09/19/18 Carvedilol* (Carvedilol*) 12.5 Mg Tablet, 12.5 MG PO BID, #60 TAB 09/19/18 Ergocalciferol (Vitamin D2) (VITAMIN D2) 50,000 Unit Capsule, 23008 UNIT PO Q7D, CAP 09/19/18 Clopidogrel Bisulfate* (Clopidogrel Bisulfate*) 75 Mg Tablet, 75 MG PO DAILY, #30 TAB 09/19/18 Atorvastatin* (Atorvastatin*) 40 Mg Tablet, 40 MG PO QHS, #30 TAB 09/19/18 Bromocriptine Mesylate* (Parlodel*) 5 Mg Capsule, 5 MG PO DAILY, CAP 09/19/18 Dapagliflozin Propanediol (Farxiga) 5 Mg Tablet, 5 MG PO DAILY, #30 TAB 09/19/18 Sitagliptin* (Januvia*) 100 Mg Tablet, 100 MG PO DAILY, #30 TAB 09/19/18 Discontinued Reported Medications Tamsulosin Hcl* (Tamsulosin Hcl*) 0.4 Mg Cap.er.24h, 0.4 MG PO DAILY, CAP 06/08/17 Docusate Sodium* (Dok*) 100 Mg Tablet, 200 MG PO DAILY, #60 CAP 06/08/17 Carvedilol* (Carvedilol*) 12.5 Mg Tablet, 12.5 MG PO BID, #60 TAB 06/08/17 [place]-3 Fatty Acids (OMEGA-3) 1,000 Mg Capsule, 1000 MG PO BID, CAP 06/08/17 Lisinopril* (Lisinopril*) 20 Mg Tablet, 20 MG PO DAILY, #30 TAB 06/08/17 Bromocriptine Mesylate* (Parlodel*) 5 Mg Capsule, 5 MG PO DAILY, CAP 06/08/17 [Vit D2] No Conflict Check, 1.25 MG PO WEEKLY 06/08/17 Sitagliptin* (Januvia*) 100 Mg Tablet, 100 MG PO DAILY, #30 TAB 06/08/17 Metformin Hcl* (Metformin Hcl*) 1,000 Mg Tablet, 1000 MG PO WITH BREAKFAST DINNE, #30 TAB 06/08/17 Insulin Degludec (Tresiba Flextouch U-100) 100 Unit/1 Ml Insuln.pen, 45 UNIT SQ DAILY 06/08/17 Atorvastatin* (Atorvastatin*) 80 Mg Tablet, 80 MG PO QHS, #30 TAB 06/08/17 Liraglutide (Victoza 2-Rod) 0.6 Mg/0.1 Ml Pen.injctr, 0.6 02/28/11 Ezetimibe* (Zetia*) 10 Mg Tablet, 10 MG PO HS 02/28/11 Fenofibrate Nanocrystallized* (Tricor*) 145 Mg Tablet 05/26/10 Clopidogrel Bisulfate (Plavix) 75 Mg Tablet 05/26/10 Insulin Glargine,Hum.rec.anlog (Lantus) 100 U/Ml Cartridge, 30 U SC HS, 0 Refills 03/12/10 Simvastatin* (Simvastatin*) 80 Mg Tablet 03/12/10 Pioglitazone Hcl* (Actos*) 45 Mg Tablet, 45 MG PO HS, 0 Refills 03/12/10 Aspirin Ec (Aspir 81) 81 Mg Tablet. 03/12/10 Follow-up Plan priMary care doctor 1 week; cardiology in 1 month; endocrinology in 2 weeks Primary Care Provider Not On Staff Doctor Time spent on discharge: > 30 minutes Pending Labs Laboratory Tests Test 09/21/18 11:51 09/21/18 17:08 09/21/18 20:17 09/22/18 07:23 Bedside 128 126 233 165 Glucose mg/dL (70-220) mg/dL (70-220) mg/dL (70-220) mg/dL (70-220) Copies To: CC: JANIS MOTT MD; WILDER TRAORE MD ; ALEENA JIMENEZ MD Sep 22, 2018 11:31
--- NOTE | 2018-09-22 11:31 | PDOCDIS ---
Discharge Instructions DIAGNOSIS Discharge Diagnosis Acute cerebrovascular accident; hypertension; benign prostatic hypertrophy; hyperlipidemia; diabetes mellitus type 2; grade 1 diastolic dysfunction; obesity with a BMI of 34.9 CONDITION [id number] Patient Condition: [id number] Good HOME CARE INSTRUCTIONS: [id number] Special Diet: [id number] Diabetic diet ACTIVITY: [id number] Activity Restrictions: [id number] Slowly Increase Activity FOLLOW UP/APPOINTMENTS Follow-up Plan priMary care doctor 1 week; cardiology in 1 month; endocrinology in 2 weeks ALEENA JIMENEZ MD Sep 22, 2018 11:31
[2018-09-22] MEDS ORDERED: ATOR-2 PO (11:33)
[2018-09-22] MEDS ORDERED: ASPI-831 PO (11:33)
[2018-09-22] MEDS ORDERED: LISI-471 PO (11:33)
[2018-09-23] MEDS ORDERED: LISINOPRIL 20 MG TAB PO SCH (09:00)
== END 2018-09-22 14:10 | disposition home or self-care (01) | DRG 65 ==
LOC: E/R 16:42 → 6WM 18:24
PROVIDERS: ADMIT Internal Medicine; ATTEND Internal Medicine
DX: I63.9 Cerebral infarction, unspecified (principal); I50.30 Unspecified diastolic (congestive) heart failure; E78.5 Hyperlipidemia, unspecified; E11.9 Type 2 diabetes mellitus without complications; F17.210 Nicotine dependence, cigarettes, uncomplicated; I25.10 Atherosclerotic heart disease of native coronary artery without angina pectoris; R47.1 Dysarthria and anarthria; E66.9 Obesity, unspecified; I11.0 Hypertensive heart disease with heart failure; Z68.34 Body mass index [BMI] 34.0-34.9, adult; Z95.5 Presence of coronary angioplasty implant and graft; Z79.84 Long term (current) use of oral hypoglycemic drugs; N40.0 Benign prostatic hyperplasia without lower urinary tract symptoms
CPT/HCPCS: 36415; 70450; 70496; 70498; 70544; 70548; 70551; 71045; 80048; 80053; 80061; 80307; 82550; 82553; 82962; 83036; 83735; 84443; 84484; 85025; 85610; 85651; 85730; 86592; 86803; 86850; 86900; 86901; 87340; 92610; 93005; 93306; 93880; 97161; 97166; J1815; J3475; J7030; Q9967